=== PATIENT | male | born 1985 | race Caucasian/White ===

== ENCOUNTER 2017-05-14 03:14 | Emergency (ER) | payer OTHER ==
[~2017-05-14] VITALS: Ht 180.3 cm; Wt 90.7 kg
[2017-05-14] MEDS ORDERED: BACITRACIN TOP OINT 1 UD PKG TOP ONE (04:45)
[2017-05-14] MEDS ORDERED: LIDOCAINE 1% HCL (LOCAL ANESTH.) INJ 20ML MDV ID ONE (04:45)
[2017-05-14 04:50] VITALS: BP 108/68
== END 2017-05-14 05:58 | disposition home or self-care (01) ==
LOC: ER 03:19
DX: S01.81XA Laceration without foreign body of other part of head, initial encounter (principal); W01.0XXA Fall on same level from slipping, tripping and stumbling without subsequent striking against object, initial encounter; Y93.89 Activity, other specified; Y99.8 Other external cause status; Y92.89 Other specified places as the place of occurrence of the external cause
CPT/HCPCS: 12052; 99284; J2001